=== PATIENT | male | born 1985 | race Caucasian/White ===

== ENCOUNTER 2017-04-27 20:36 | Emergency (ER) | payer OTHER ==
[~2017-04-27] VITALS: Ht 162.6 cm; Wt 104.3 kg
[2017-04-27] MEDS ORDERED: LISI10TA2 (21:09)
--- NOTE | 2017-04-27 21:46 | ED Chest Pain ---
General Chief Complaint: General Problems/Pain Stated Complaint: CHEST PAIN HEART RATE BLOOD PRESSURE Nursing Triage Note: PT TO ED 7 W/ S.O. FOR C/O HIGH BLOOD PRESSURE, OCCASIONAL RAPID HEART RATE ET INTERMITTENT CHEST PAIN FOR "SEVERAL DAYS". PT REPORTS WAS SEEN BY NICOLE PRUITT FRIDAY, PRESCRIBED LISINOPRIL ET LAB WORK WAS ORDERED. PT REPORTS HE FILLED THE RX FRIDAY BUT DID NOT START TAKING TIL 1900 TONIGHT AND DID NOT HAVE BLOOD WORK DRAWN TIL EARLIER TODAY. NO OTHER C/O VOICED Nursing Sepsis Screen: No Definite Risk Source: patient, spouse Exam Limitations: no limitations History of Present Illness Time seen by provider: 21:30 Initial Comments Patient presents to ER by private conveyance with a chief complaint that around 8:00 tonight he began to experience some chest pain described as an elephant sitting in the middle of his chest causing pressure accompanied with left arm aching. He took an aspirin at that time and in the past she has taken an aspirin every time he feels these symptoms. Within 1-2 minutes after taking the aspirin he says his symptoms go away. He has been expansion the symptoms for several weeks now and only started working him up with a primary care physician last week. Has no shortness of breath, nausea, fever, chills, sweats, cough. He smokes half to one pack per day. He does not have a known history of diabetes, hypothyroidism, hypercholesterolism but he does have a history of high blood pressure recently diagnosed. He has not been seen prior by any physician until he recently established with Dr. Zamora because he has had these episodes multiple times over the past several weeks where he will get pressure in his chest, feeling out of it and feel chest palpitations. He has not checked his blood sugar during these episodes. He does not have a family history of heart disease prior to the age of 60. He was recently started on lisinopril 10 mg and took his first dose tonight. His significant other says his blood pressure improved from 160s over 105 down to 140s over 105 after taking the lisinopril. He is still feeling out of it and having the chest pressure so they decided come to ER to have him evaluated further. This morning he was in the hospital getting blood work drawn an outpatient basis but he has not seen the results yet. Allergies and Home Medications Allergies Coded Allergies: No Known Drug Allergies (Unverified , 04/27/17) Home Medications Lisinopril 10 Mg Tablet, (Reported) Review of Systems Constitutional: No chills, No diaphoresis EENTM: No Eye Pain, No Ear Pain Respiratory: Denies Cough, Denies Shortness of Air Cardiovascular: See HPI, Chest Pain, Denies Edema, Lightheadedness, Palpitations, Denies Syncope Gastrointestinal: Denies Abdomen Distended, Denies Abdominal Pain, Denies Blood Streaked Stools, Denies Constipated, Denies Diarrhea, Denies Nausea Genitourinary: Denies Burning, Denies Discharge, Denies Frequency, Denies Pain , Denies Urgency Musculoskeletal: No back pain, No joint pain Skin: No pruritus, No rash Psychiatric/Neurological: Denies Anxiety, Denies Depressed, Denies Headache, Denies Numbness, Denies Paresthesia Endocrine: Denies Intolerance to Cold, Denies Intolerance to Heat, Denies Increased Hunger, Denies Increased Thrist, Denies Increased Urine, Denies Unexplained Weight Gain, Denies Unexplaned Weight Loss Past Fvsrfwc-Gcrlxv-Icjcdv Hx Patient Social History Alcohol Use: Denies Use Recreational Drug Use: No Smoking Status: Current Everyday Smoker Type Used: Cigarettes Recent Foreign Travel: No Contact w/Someone Who Travel: No Recent Infectious Disease Expo: No Recent Hopitalizations: No Physical Abuse: No Sexual Abuse: No Mistreated: No Fear: No Surgeries History of Surgeries: Yes Surgeries: Adenoidectomy, Tonsillectomy Respiratory History of Respiratory Disorde: No Cardiovascular History of Cardiac Disorders: Yes Cardiac Disorders: Hypertension Neurological History of Neurological Disord: No Genitourinary History of Genitourinary Disor: No Gastrointestinal History of Gastrointestinal Di: No Musculoskeletal History of Musculoskeletal Dis: No Endocrine History of Endocrine Disorders: No HEENT History of HEENT Disorders: No Cancer History of Cancer: No Did You Recieve Any Treatments: No Psychosocial Suicide Risk Score: 0 Integumentary History of Skin or Integumenta: No Physical Exam Vital Signs Vital Sign - Last 12Hours 04/27/17 20:55 Temp 97.1 Pulse 101 Resp 20 B/P (MAP) 164/107 (126) Pulse Ox 97 O2 Delivery Room Air Capillary Refill : Less Than 3 Seconds General Appearance: No Apparent Distress, WD/WN, Other (depressed affect) HEENT: PERRL/EOMI, Pharynx Normal Neck: Full Range of Motion, Non Tender, Supple Respiratory: Chest Non Tender, Lungs Clear, Normal Breath Sounds, No Accessory Muscle Use, No Respiratory Distress Cardiovascular: Regular Rate, Rhythm, No Edema, No Gallop, No Murmur, Normal Peripheral Pulses Gastrointestinal: Normal Bowel Sounds, No Organomegaly, Non Tender, Soft Extremity: Normal Capillary Refill, Normal Inspection, No Pedal Edema Neurologic/Psychiatric: Alert, Oriented x3, No Motor/Sensory Deficits Skin: Normal Color, Warm/Dry Progress/Results/Core Measures Results/Orders Lab Results Laboratory Tests Test 04/27/17 22:01 04/27/17 22:35 Range/Units Glucometer 123 H 70-110 MG/DL White Blood Count 9.6 4.3-11.0 10^3/uL Red Blood Count 5.27 4.35-5.85 10^6/uL Hemoglobin 15.7 13.3-17.7 G/DL Hematocrit 46 40-54 % Mean Corpuscular Volume 87 80-99 FL Mean Corpuscular Hemoglobin 30 25-34 PG Mean Corpuscular Hemoglobin Concent 34 32-36 G/DL Red Cell Distribution Width 13.2 10.0-14.5 % Platelet Count 332 130-400 10^3/uL Mean Platelet Volume 10.3 7.4-10.4 FL Neutrophils (%) (Auto) 53 42-75 % Lymphocytes (%) (Auto) 34 12-44 % Monocytes (%) (Auto) 10 0-12 % Eosinophils (%) (Auto) 3 0-10 % Basophils (%) (Auto) 0 0-10 % Neutrophils # (Auto) 5.1 1.8-7.8 X 10^3 Lymphocytes # (Auto) 3.2 1.0-4.0 X 10^3 Monocytes # (Auto) 0.9 0.0-1.0 X 10^3 Eosinophils # (Auto) 0.3 0.0-0.3 10^3/uL Basophils # (Auto) 0.0 0.0-0.1 10^3/uL Sodium Level 140 135-145 MMOL/L Potassium Level 4.0 3.6-5.0 MMOL/L Chloride Level 106 98-107 MMOL/L Carbon Dioxide Level 23 21-32 MMOL/L Anion Gap 11 5-14 MMOL/L Blood Urea Nitrogen 12 7-18 MG/DL Creatinine 0.84 0.60-1.30 MG/DL Estimat Glomerular Filtration Rate > 60 BUN/Creatinine Ratio 14 Glucose Level 103 70-105 MG/DL Hemoglobin A1c 5.6 4.5-6.2 % Calcium Level 9.2 8.5-10.1 MG/DL Total Bilirubin 0.2 0.1-1.0 MG/DL Aspartate Amino Transf (AST/SGOT) 19 5-34 U/L Alanine Aminotransferase (ALT/SGPT) 48 0-55 U/L Alkaline Phosphatase 66 40-136 U/L Troponin I < 0.30 <0.30 NG/ML Total Protein 7.0 6.4-8.2 GM/DL Albumin 4.0 3.2-4.5 GM/DL My Orders Orders - NICK LUNA Cbc With Automated Diff (04/27/17 21:50) Comprehensive Metabolic Panel (04/27/17 21:50) Troponin I (04/27/17 21:50) Chest Pa/Lat (2 View) (04/27/17 21:50) Hemoglobin A1c (04/27/17 21:50) Ekg Tracing (04/27/17 21:50) Continuous Ekg Monitoring (04/27/17 21:50) Accucheck Stat ONCE (04/27/17 21:50) Saline Lock/Iv-Start (04/27/17 22:36) Vital Signs/I&O Vital Sign - Last 12Hours 04/27/17 20:55 Temp 97.1 Pulse 101 Resp 20 B/P (MAP) 164/107 (126) Pulse Ox 97 O2 Delivery Room Air Blood Pressure Mean: 126 Progress Note : Time: 21:44 Progress Note Blood drawn from earlier today reveals no leukocytosis or anemia. His folliculitis are okay kidney function is good. He has mildly elevated blood sugar of 117 at that time fasting a normal TSH and no A1c was drawn at that time. We will obtain a troponin and random blood sugar as well as A1c and EKG and chest x-ray today. It's unlikely this represents a cardiac problem. Hypoglycemia might better explain it. ECG Initial ECG Impression Date: Apr 27, 2017 Initial ECG Impression Time: 20:57 Initial ECG Rate: 82 Initial ECG Rhythm: Normal Sinus Initial ECG Intervals: Normal Initial ECG Impression: Normal Initial ECG Comparisson: No Previous ECG Available Comment No T-wave elevation or depression. Diagnostic Imaging Diagonstic Imaging: Xray Plain Films/CT/US/NM/MRI: chest Comments Lung parenchyma unremarkable. No osseous or soft tissue abnormalities. Cardiac shadow borderline enlarged. Reviewed: Reviewed by Me Departure Impression Impression: Primary Impression: Chest pressure Additional Impressions: Hypertension Qualified Codes: I10 - Essential (primary) hypertension Tobacco abuse Disposition: HOME, SELF-CARE Condition: Stable Departure-Patient Inst. Decision time for Depature: 23:32 Referrals: KAPIL ZAMORA MD (PCP/Family) Primary Care Physician Patient Instructions: Chest Pain That Is Not Caused by the Heart (DC) Add. Discharge Instructions: Keep your planned follow-up appointment with your primary care physician. If you begin to have these spells again you should check your sugar. Please log your resting blood pressure at least 3 times a week and take this with you to your appointment with the primary care physician. Tonight take another 10 mg tablet of lisinopril. Tomorrow morning take 2 tablets daily until you see your primary care physician. A refill has been sent to your pharmacy. All discharge instructions reviewed with patient and/or family. Voiced understanding. Scripts Lisinopril (Lisinopril) 20 Mg Tablet 20 MG PO DAILY for 30 Days, #30 TAB 0 Refills Prov: NICK LUNA 04/27/17 Copy Copies To 1: KAPIL ZAMORA MD, TITUS J Apr 27, 2017 21:46
[2017-04-27 22:43] LABS: BASOPHILS % (AUTO) 0 % (0-10); EOSINOPHILS # (AUTO) 0.3 10^3/uL (0.0-0.3); EOSINOPHILS % (AUTO) 3 % (0-10); LYMPHOCYTES # (AUTO) 3.2 X 10^3 (1.0-4.0); LYMPHOCYTES % (AUTO) 34 % (12-44); MEAN CORPUSCULAR HEMOGLOBIN 30 PG (25-34); MEAN CORPUSCULAR HGB CONC 34 G/DL (32-36); MEAN CORPUSCULAR VOLUME 87 FL (80-99); MEAN PLATELET VOLUME 10.3 FL (7.4-10.4); MONOCYTES # (AUTO) 0.9 X 10^3 (0.0-1.0); MONOCYTES % (AUTO) 10 % (0-12); NEUTROPHILS # (AUTO) 5.1 X 10^3 (1.8-7.8); NEUTROPHILS % (AUTO) 53 % (42-75); PLATELET COUNT 332 10^3/uL (130-400); RED BLOOD COUNT 5.27 10^6/uL (4.35-5.85); RED CELL DISTRIBUTION WIDTH 13.2 % (10.0-14.5); WHITE BLOOD COUNT 9.6 10^3/uL (4.3-11.0)
[2017-04-27 23:05] LABS: ALANINE AMINOTRANSFERASE 48 U/L (0-55); ANION GAP 11 MMOL/L (5-14); ASPARTATE AMINO TRANSFERASE 19 U/L (5-34); BILIRUBIN,TOTAL 0.2 MG/DL (0.1-1.0); BLOOD UREA NITROGEN 12 MG/DL (7-18); BUN/CREATININE RATIO 14; CALCIUM 9.2 MG/DL (8.5-10.1); CARBON DIOXIDE 23 MMOL/L (21-32); CHLORIDE 106 MMOL/L (98-107); CREATININE SERUM 0.84 MG/DL (0.60-1.30); GFR ESTIMATED > 60; GLUCOSE 103 MG/DL (70-105); SODIUM 140 MMOL/L (135-145)
[2017-04-27 23:10] LABS: TROPONIN I < 0.30 NG/ML (<0.30)
[2017-04-27] MEDS ORDERED: LISI-552 PO (23:34)
[2017-04-27 23:37] VITALS: BP 141/78
--- NOTE | 2017-04-28 06:48 | Diagnostic Imaging Report ---
INDICATION: Cough and congestion. FINDINGS: Lungs are clear. The heart and vessels normal. There is no effusion or pneumothorax. IMPRESSION: No acute appearing abnormality. Dictated by: Dictated on workstation # [id number]
== END 2017-04-27 23:37 | disposition home or self-care (01) ==
LOC: EDUNIT# 20:36 → ER 20:39
DX: R07.89 Other chest pain (principal); I10 Essential (primary) hypertension; F17.210 Nicotine dependence, cigarettes, uncomplicated; Z90.89 Acquired absence of other organs; Z79.82 Long term (current) use of aspirin
CPT/HCPCS: 36415; 71020; 80053; 82962; 83036; 84484; 85025; 93005

== ENCOUNTER → 2017-04-27 | Outpatient (CLI) | payer BC, OTHER ==
[~2017-04-27] MED LIST: LISI-552 PO; LISI10TA2
[2017-04-27 08:11] LABS: BASOPHILS # (AUTO) 0.1 10^3/uL (0.0-0.1); BASOPHILS % (AUTO) 1 % (0-10); EOSINOPHILS # (AUTO) 0.2 10^3/uL (0.0-0.3); EOSINOPHILS % (AUTO) 3 % (0-10); LYMPHOCYTES # (AUTO) 2.2 X 10^3 (1.0-4.0); LYMPHOCYTES % (AUTO) 31 % (12-44); MEAN CORPUSCULAR HEMOGLOBIN 30 PG (25-34); MEAN CORPUSCULAR HGB CONC 34 G/DL (32-36); MEAN CORPUSCULAR VOLUME 88 FL (80-99); MEAN PLATELET VOLUME 10.2 FL (7.4-10.4); MONOCYTES # (AUTO) 0.7 X 10^3 (0.0-1.0); MONOCYTES % (AUTO) 10 % (0-12); NEUTROPHILS # (AUTO) 3.9 X 10^3 (1.8-7.8); NEUTROPHILS % (AUTO) 55 % (42-75); PLATELET COUNT 304 10^3/uL (130-400); RED BLOOD COUNT 5.36 10^6/uL (4.35-5.85); RED CELL DISTRIBUTION WIDTH 13.4 % (10.0-14.5)
[2017-04-27 08:29] LABS: ALANINE AMINOTRANSFERASE 51 U/L (0-55); ALBUMIN 4.1 GM/DL (3.2-4.5); ANION GAP 9 MMOL/L (5-14); ASPARTATE AMINO TRANSFERASE 21 U/L (5-34); BILIRUBIN,TOTAL 0.3 MG/DL (0.1-1.0); BLOOD UREA NITROGEN 10 MG/DL (7-18); BUN/CREATININE RATIO 12; CALCIUM 9.2 MG/DL (8.5-10.1); CARBON DIOXIDE 26 MMOL/L (21-32); CHLORIDE 105 MMOL/L (98-107); CHOLESTEROL 176 MG/DL (< 200); CREATININE SERUM 0.85 MG/DL (0.60-1.30); DIRECT LDL 122 MG/DL (1-129); GFR ESTIMATED > 60; GLUCOSE 117 MG/DL (70-105); POTASSIUM 4.4 MMOL/L (3.6-5.0); SODIUM 140 MMOL/L (135-145); TRIGLYCERIDES 86 MG/DL (<150); VLDL CHOLESTEROL 17 MG/DL (5-40)
[2017-04-27 08:49] LABS: THYROID STIMULATING HORMONE 0.99 UIU/ML (0.35-4.94)
== END ==
LOC: LAB 07:57
PROVIDERS: ATTEND Nurse Practitioner Family
DX: I10 Essential (primary) hypertension (principal)
CPT/HCPCS: 36415; 80053; 80061; 84443; 85025

== ENCOUNTER 2021-11-24 21:04 | Emergency (ER) | payer OTHER ==
[~2021-11-24] VITALS: Ht 165 cm; Wt 113.2 kg
[~2021-11-24 21:04] MED LIST changes: +AC325T PO; -LISI-552 PO; -LISI10TA2; +LISI10TA25; +LISI20TA26 PO
--- NOTE | 2021-11-24 21:51 | ED Abdominal Pain ---
General Chief Complaint: Abdominal/GI Problems Stated Complaint: ABD PAIN Nursing Triage Note: c.o stabbing pain under belly button. x4 days. seen at urgent care today for same et. sent here for ultrasound. for umbilical hernia. Source of Information: Patient Exam Limitations: No Limitations History of Present Illness Date Seen by Provider: Nov 24, 2021 Time Seen by Provider: 21:37 Initial Comments Patient is a 36-year-old male who presents to the emergency department today with a chief complaint of 2 to 3 days of lower abdominal pain. Patient states the pain is come on gradually with much more intensity today. He complains of nausea and decreased appetite. No change in bowels. No black or bloody stools. No real diarrhea. He has tried some amgs-lby-fzfzfoo medications actually for some constipation. Denies fevers or chills or URI symptoms. Has never had pain like this before. Has never had any abdominal surgeries in the past. All other review of systems reviewed and negative except as stated. Timing/Duration: 2-3 Days Severity/Quality: Severe, Aching, Cramping Location: RLQ, Suprapubic Radiation: No Radiation Activities at Onset: None Modifying Factors: Improves With Lying down (slightly better); Worsens With Movement Associated Symptoms: Nausea/Vomiting Allergies and Home Medications Allergies Coded Allergies: No Known Drug Allergies (Unverified , 04/27/17) Patient Home Medication List Home Medication List Reviewed: Yes Ciprofloxacin HCl (Ciprofloxacin HCl) 500 Mg Tablet, 500 MG PO BID Prescribed by: ASHVIN CONNOLLY on 11/24/212323 Hydrocodone/Acetaminophen (Hydrocodone-Acetamin 5-325 mg) 5 Mg-325 Mg Tablet, 1 TAB PO Q6H PRN for PAIN-MODERATE (5-7) Prescribed by: ASHVIN CONNOLLY on 11/24/212323 Metronidazole (Metronidazole) 500 Mg Tablet, 500 MG PO TID Prescribed by: ASHVIN CONNOLLY on 11/24/212323 Ondansetron (Ondansetron Odt) 4 Mg Tab.rapdis, 4 MG PO Q8H PRN for nausea Prescribed by: ASHVIN CONNOLLY on 11/24/212323 Discontinued Medications Acetaminophen (Tylenol) 325 Mg Tablet, 325 MG PO PRN, (Reported) Discontinued Reason: No Longer Taking Entered as Reported by: CASPER CEDILLO on 01/18/11 1505 Last Action: Discontinued Lisinopril (Lisinopril) 10 Mg Tablet, (Reported) Discontinued Reason: No Longer Taking Entered as Reported by: PK VILLANUEVA on 04/27/172108 Last Action: Discontinued Lisinopril (Lisinopril) 20 Mg Tablet, 20 MG PO DAILY Discontinued Reason: No Longer Taking Prescribed by: NICK LNUA on 04/27/17 2334 Last Action: Discontinued Review of Systems Review of Systems Constitutional: see HPI EENTM: No Symptoms Reported Respiratory: No Symptoms Reported Cardiovascular: No Symptoms Reported Gastrointestinal: Abdominal Pain, Nausea, Vomiting Genitourinary: No Symptoms Reported Musculoskeletal: no symptoms reported Skin: no symptoms reported All Other Systems Reviewed Negative Unless Noted: Yes Past Kvzltlt-Hmqjyd-Zfrwdf Hx Patient Social History Tobacco Use?: Yes Substance use?: No Alcohol Use?: No Pt feels they are or have been: No Past Medical History Surgery/Hospitalization HX: denies Surgeries: Yes Adenoidectomy, Tonsillectomy Respiratory: No Cardiac: Yes Hypertension Neurological: No Genitourinary: No Gastrointestinal: No Musculoskeletal: No Endocrine: No HEENT: No Cancer: No Did You Recieve Any Treatments: No Integumentary: No Physical Exam Vital Signs Vital Signs - First Documented 11/24/21 21:33 Temp 36.9 Pulse 88 Resp 18 B/P (MAP) 184/87 (119) Pulse Ox 99 O2 Delivery Room Air Capillary Refill : Less Than 3 Seconds Height/Weight/BMI Height: 5'4.00" Weight: 230lbs. oz. [id number]; 41.00 BMI Method:Stated General Appearance: WD/WN, moderate distress HEENT: PERRL/EOMI Neck: full range of motion Respiratory: lungs clear, normal breath sounds, no respiratory distress, no accessory muscle use Cardiovascular: regular rate, rhythm Gastrointestinal: soft, guarding (RLQ and suprapubic), rebound, tenderness Extremities: normal range of motion, non-tender, normal inspection, no pedal edema, normal capillary refill Neurologic/Psychiatric: no motor/sensory deficits, alert, normal mood/affect, oriented x 3 Skin: normal color, warm/dry Progress/Results/Core Measures Results/Orders Lab Results Laboratory Tests Test 11/24/21 21:53 Range/Units White Blood Count 18.3 H 4.3-11.0 10^3/uL Red Blood Count 5.12 4.30-5.52 10^6/uL Hemoglobin 14.8 13.3-17.7 g/dL Hematocrit 44 40-54 % Mean Corpuscular Volume 86 80-99 fL Mean Corpuscular Hemoglobin 29 25-34 pg Mean Corpuscular Hemoglobin Concent 34 32-36 g/dL Red Cell Distribution Width 13.0 10.0-14.5 % Platelet Count 341 130-400 10^3/uL Mean Platelet Volume 10.3 9.0-12.2 fL Immature Granulocyte % (Auto) 0 % Neutrophils (%) (Auto) 81 H 42-75 % Lymphocytes (%) (Auto) 11 L 12-44 % Monocytes (%) (Auto) 8 0-12 % Eosinophils (%) (Auto) 0 0-10 % Basophils (%) (Auto) 0 0-10 % Neutrophils # (Auto) 14.7 H 1.8-7.8 10^3/uL Lymphocytes # (Auto) 2.0 1.0-4.0 10^3/uL Monocytes # (Auto) 1.5 H 0.0-1.0 10^3/uL Eosinophils # (Auto) 0.0 0.0-0.3 10^3/uL Basophils # (Auto) 0.0 0.0-0.1 10^3/uL Immature Granulocyte # (Auto) 0.1 0.0-0.1 10^3/uL Neutrophils % (Manual) 76 % Lymphocytes % (Manual) 15 % Monocytes % (Manual) 9 % Blood Morphology Comment NORMAL Urine Color YELLOW Urine Clarity SL CLOUDY Urine pH 7.0 5-9 Urine Specific Hanahan 1.015 L 1.016-1.022 Urine Protein NEGATIVE NEGATIVE Urine Glucose (UA) NEGATIVE NEGATIVE Urine Ketones 1+ H NEGATIVE Urine Nitrite NEGATIVE NEGATIVE Urine Bilirubin NEGATIVE NEGATIVE Urine Urobilinogen 0.2 < = 1.0 MG/DL Urine Leukocyte Esterase NEGATIVE NEGATIVE Urine RBC (Auto) NEGATIVE NEGATIVE Urine RBC NONE /HPF Urine WBC 0-2 /HPF Urine Squamous Epithelial Cells NONE /HPF Urine Renal Epithelial Cells NONE /HPF Urine Crystals PRESENT H /LPF Urine Amorphous Sediment FEW DESTIN PHOSPHATE H /LPF Urine Bacteria FEW H /HPF Urine Casts NONE /LPF Urine Mucus NEGATIVE /LPF Urine Culture Indicated NO Sodium Level 135 135-145 MMOL/L Potassium Level 4.1 3.6-5.0 MMOL/L Chloride Level 101 98-107 MMOL/L Carbon Dioxide Level 21 21-32 MMOL/L Anion Gap 13 5-14 MMOL/L Blood Urea Nitrogen 10 7-18 MG/DL Creatinine 0.83 0.60-1.30 MG/DL Estimat Glomerular Filtration Rate 117 BUN/Creatinine Ratio 12 Glucose Level 116 H 70-105 MG/DL Calcium Level 9.4 8.5-10.1 MG/DL Corrected Calcium 9.2 8.5-10.1 MG/DL Total Bilirubin 0.6 0.1-1.0 MG/DL Aspartate Amino Transf (AST/SGOT) 17 5-34 U/L Alanine Aminotransferase (ALT/SGPT) 34 0-55 U/L Alkaline Phosphatase 78 40-136 U/L Total Protein 7.3 6.4-8.2 GM/DL Albumin 4.2 3.2-4.5 GM/DL My Orders Orders - ASHVIN CONNOLLY MD Ed Iv/Invasive Line Start (11/24/21 21:46) Cbc With Automated Diff (11/24/21 21:46) Comprehensive Metabolic Panel (11/24/21 21:46) Ua Culture If Indicated (11/24/21 21:46) Ns Iv 1000 Ml (Sodium Chloride 0.9%) (11/24/21 22:00) Fentanyl Inj (Sublimaze Injection) (11/24/21 22:00) Ondansetron Injection (Zofran Injectio (11/24/21 22:00) Ct Abd/Pelv W (Appendicitis) (11/24/21 21:46) Manual Differential (11/24/21 21:53) Iohexol Injection (Omnipaque 350 Mg/Ml 1 (11/24/21 22:30) Received Contrast (Hold Metformin- Contr (11/24/21 22:30) Ns (Ivpb) (Sodium Chloride 0.9% Ivpb Bag (11/24/21 22:30) Fentanyl Inj (Sublimaze Injection) (11/24/21 23:15) Ciprofloxacin Tablet (Cipro Tablet) (11/24/21 23:08) Metronidazole Tablet (Flagyl Tablet) (11/24/21 23:15) Rx-Hydrocodone/Apap 5-325 Mg (Rx-Vicodin (11/24/21 23:30) Medications Given in ED Current Medications Medications Dose Ordered Sig/Olive Route Start Time Stop Time Status Last Admin Dose Admin Acetaminophen/ Hydrocodone Bitart 1 ea Q6H PRN PO 11/24/21 23:30 11/24/21 23:37 DC 11/24/21 23:32 1 EA Fentanyl Citrate 50 mcg ONCE ONCE IVP 11/24/21 22:00 11/24/21 22:01 DC 11/24/21 21:53 50 MCG Fentanyl Citrate 50 mcg ONCE ONCE IVP 11/24/21 23:15 11/24/21 23:16 DC 11/24/21 23:30 50 MCG Iohexol 100 ml ONCE ONCE IV 11/24/21 22:30 11/24/21 22:31 DC 11/24/21 22:31 100 ML Metronidazole 500 mg ONCE ONCE PO 11/24/21 23:15 11/24/21 23:16 DC 11/24/21 23:30 500 MG Ondansetron HCl 4 mg ONCE ONCE IVP 11/24/21 22:00 11/24/21 22:01 DC 11/24/21 21:53 4 MG Sodium Chloride 100 ml ONCE ONCE IV 11/24/21 22:30 11/24/21 22:31 DC 11/24/21 22:31 80 ML Vital Signs/I&O 11/24/21 11/24/21 21:33 23:35 Temp 36.9 36.6 Pulse 88 78 Resp 18 16 B/P (MAP) 184/87 (119) 151/79 Pulse Ox 99 100 O2 Delivery Room Air Room Air 11/25/21 00:00 Intake Total 1000 ml Balance 1000 ml Blood Pressure Mean: 119 Diagnostic Imaging Diagonstic Imaging: CT Comments [facility], [place] NAME: DONNA DA SILVA MED REC#: [id number] PT STATUS: REG ER : 1985 PHYSICIAN: ASHVIN CONNOLLY MD ADMIT DATE: 11/24/21/ER Signed Date of Exam:11/24/21 CT ABD/PELV W (APPENDICITIS) PROCEDURE: CT abdomen and pelvis with contrast, rule out appendicitis. TECHNIQUE: Multiple contiguous axial images were obtained through the abdomen and pelvis after the administration of intravenous contrast. All CT scans use one or more of the following dose optimizing techniques: automated exposure control, MA and/or KvP adjustment based on patient size and exam type or iterative reconstruction. INDICATION: Right lower quadrant pain. FINDINGS: The lung bases are clear. The liver is normal in size and without focal lesions. Gallbladder is unremarkable. No biliary ductal dilatation. Spleen is normal. The pancreas and adrenal glands are unremarkable. Kidneys are normal in appearance. Aorta is nonaneurysmal. The bowel gas pattern is nonspecific. There is diffuse mucosal thickening in the sigmoid colon. There is surrounding inflammatory change. There does appear to be a few diverticula. No pelvic mass or adenopathy. Bladder is normal. The osseous structures are unremarkable. IMPRESSION: 1. Findings most likely reflecting uncomplicated diverticulitis of the sigmoid colon although an isolated colitis could have a similar appearance. Recommend clinical correlation. 2. Otherwise unremarkable CT abdomen and pelvis. Dictated by: Dictated on workstation # [id number] Dict: 11/24/21 2237 Trans: 11/24/214 [facility] [id number] Interpreted by: HELENA ALCANTAR MD Electronically signed by: HELENA ALCANTAR MD 11/24/21 2254 Departure Impression Primary Impression: Sigmoid diverticulitis Disposition: 01 HOME, SELF-CARE Condition: Improved Departure-Patient Inst. Decision time for Depature: 23:21 Referrals: KAPIL PATEL MD (PCP/Family) Primary Care Physician Patient Instructions: Diverticulitis Add. Discharge Instructions: Drink plenty fluids to stay well-hydrated. Take the antibiotics as directed for the next 7 days. Flagyl 3 times daily, Cipro twice daily. Hydrocodone 1 every 6 hours with food as needed for pain. You can also take the anti-inflammatory every 6 hours for pain as well. Zofran 4 mg every 8 hours as needed for nausea. If after being on the antibiotics a couple of days you develop worsening pain, worsening vomiting or fever please come back to the emergency room for reevaluation. Follow-up with your primary care provider in a week. Scripts Ondansetron (Ondansetron Odt) 4 Mg Tab.rapdis 4 MG PO Q8H PRN for nausea, #15 TAB Prov: ASHVIN CONNOLLY MD 7/9/22 Hydrocodone/Acetaminophen (Hydrocodone-Acetamin 5-325 mg) 5 Mg-325 Mg Tablet 1 TAB PO Q6H PRN for PAIN-MODERATE (5-7), #12 TAB Prov: ASHVIN CONNOLLY MD 11/24/21 Metronidazole (Metronidazole) 500 Mg Tablet 500 MG PO TID for 7 Days, #21 TAB Prov: ASHVIN CONNOLLY MD 11/24/21 Ciprofloxacin HCl (Ciprofloxacin HCl) 500 Mg Tablet 500 MG PO BID, #14 TAB Prov: ASHVIN CONNOLLY MD 11/24/21 Copy Copies To 1: KAPIL PATEL MD, KATHRYN M MD Nov 24, 2021 21:51
[2021-11-24] MEDS ORDERED: ONDANSETRON 4 MG/2 ML (SDV) Z0FRAN IVP ONE (22:00)
[2021-11-24] MEDS ORDERED: NS IV 1000 ML 1,000 ML IV SCH (22:00)
[2021-11-24] MEDS ORDERED: fentaNYL INJ 100 MCG/2 ML AMP IVP ONE ×2 (22:00→23:15)
[2021-11-24 22:06] LABS: BASOPHILS % (AUTO) 0 % (0-10); EOSINOPHILS % (AUTO) 0 % (0-10); HEMATOCRIT 44 % (40-54); HEMOGLOBIN 14.8 g/dL (13.3-17.7); LYMPHOCYTES % (AUTO) 11 % (12-44); MEAN CORPUSCULAR HEMOGLOBIN 29 pg (25-34); MEAN CORPUSCULAR HGB CONC 34 g/dL (32-36); MEAN CORPUSCULAR VOLUME 86 fL (80-99); MEAN PLATELET VOLUME 10.3 fL (9.0-12.2); MONOCYTES # (AUTO) 1.5 10^3/uL (0.0-1.0); MONOCYTES % (AUTO) 8 % (0-12); NEUTROPHILS # (AUTO) 14.7 10^3/uL (1.8-7.8); NEUTROPHILS % (AUTO) 81 % (42-75); PLATELET COUNT 341 10^3/uL (130-400); WHITE BLOOD COUNT 18.3 10^3/uL (4.3-11.0)
[2021-11-24 22:07] LABS: BILIRUBIN,URINE NEGATIVE (NEGATIVE); CLARITY,URINE SL CLOUDY; COLOR,URINE YELLOW; GLUCOSE, URINE (UA) NEGATIVE (NEGATIVE); KETONES,URINE 1+ (NEGATIVE); LEUKOCYTE ESTERASE ,URINE NEGATIVE (NEGATIVE); NITRITE,URINE NEGATIVE (NEGATIVE); PROTEIN,URINE NEGATIVE (NEGATIVE)
[2021-11-24 22:15] LABS: AMORPHOUS SEDIMENT,UR FEW AMOR PHOSPHATE /LPF; BACTERIA,URINE FEW /HPF; WBC,URINE 0-2 /HPF
[2021-11-24 22:19] LABS: LYMPHOCYTES % (MANUAL) 15 %; MONOCYTES % (MANUAL) 9 %; NEUTROPHILS % (MANUAL) 76 %; RBC MORPH NORMAL
[2021-11-24] MEDS ORDERED: NS 100 ML (IVPB) BAG IV ONE (22:30)
[2021-11-24] MEDS ORDERED: IOHEXOL 350 MG/ML 100 ML (OMNIPAQUE 350) VIAL IV ONE (22:30)
[2021-11-24] MEDS ORDERED: HOLD METFORMIN - RECEIVED CONTRAST 20 ML VIAL IV SCH (22:30)
[2021-11-24 22:32] LABS: ALBUMIN 4.2 GM/DL (3.2-4.5)
[2021-11-24 22:33] LABS: POTASSIUM 4.1 MMOL/L (3.6-5.0)
[2021-11-24 22:34] LABS: CALCIUM 9.4 MG/DL (8.5-10.1)
[2021-11-24 22:35] LABS: TOTAL PROTEIN 7.3 GM/DL (6.4-8.2)
[2021-11-24 22:37] LABS: BILIRUBIN,TOTAL 0.6 MG/DL (0.1-1.0)
[2021-11-24 22:39] LABS: CREATININE SERUM 0.83 MG/DL (0.60-1.30)
--- NOTE | 2021-11-24 22:45 | Diagnostic Imaging Report ---
PROCEDURE: CT abdomen and pelvis with contrast, rule out appendicitis. TECHNIQUE: Multiple contiguous axial images were obtained through the abdomen and pelvis after the administration of intravenous contrast. All CT scans use one or more of the following dose optimizing techniques: automated exposure control, MA and/or KvP adjustment based on patient size and exam type or iterative reconstruction. INDICATION: Right lower quadrant pain. FINDINGS: The lung bases are clear. The liver is normal in size and without focal lesions. Gallbladder is unremarkable. No biliary ductal dilatation. Spleen is normal. The pancreas and adrenal glands are unremarkable. Kidneys are normal in appearance. Aorta is nonaneurysmal. The bowel gas pattern is nonspecific. There is diffuse mucosal thickening in the sigmoid colon. There is surrounding inflammatory change. There does appear to be a few diverticula. No pelvic mass or adenopathy. Bladder is normal. The osseous structures are unremarkable. IMPRESSION: 1. Findings most likely reflecting uncomplicated diverticulitis of the sigmoid colon although an isolated colitis could have a similar appearance. Recommend clinical correlation. 2. Otherwise unremarkable CT abdomen and pelvis. Dictated by: Dictated on workstation # [id number]
[2021-11-24] MEDS ORDERED: CIPROFLOXACIN 500 MG (CIPRO) TABLET PO STA (23:08)
[2021-11-24] MEDS ORDERED: metroNIDAZOLE 500 MG (FLAGYL) TAB PO ONE (23:15)
[2021-11-24] MEDS ORDERED: ACHD5005 PO (23:24)
[2021-11-24] MEDS ORDERED: METR-145 PO (23:24)
[2021-11-24] MEDS ORDERED: ONDA4TAB11 PO (23:24)
[2021-11-24] MEDS ORDERED: CIPR500T5 PO (23:24)
[2021-11-24 23:35] VITALS: BP 151/79
[2021-11-25] MEDS ORDERED: ACHD5005 PO (19:41)
== END 2021-11-24 23:37 | disposition home or self-care (01) ==
LOC: EDUNIT# 21:04 → ER 21:05
DX: K57.32 Diverticulitis of large intestine without perforation or abscess without bleeding (principal)
CPT/HCPCS: 36415; 74177; 80053; 81000; 85007; 85027